=== PATIENT | female | born 1970 | race Caucasian/White ===

== ENCOUNTER 2022-08-26 07:21 | Day surgery (SDC) | payer MEDICAID ==
[~2022-08-26] VITALS: Ht 152.4 cm; Wt 68.0 kg
[~2022-08-26 07:21] MED LIST: PRENATAL VITS
[2022-08-26] MEDS ORDERED: LIDOCAINE 2% 100 MG/5 ML UJET TP ONE (08:13)
[2022-08-26] MEDS ORDERED: fentaNYL citrate 0.05 MG/ML VIAL ONE (08:13)
[2022-08-26] MEDS ORDERED: fentaNYL citrate 0.05 MG/ML VIAL IVP ONE (13:40)
== END 2022-08-26 10:14 | disposition home or self-care (01) ==
LOC: MDS 07:21 → MMU 07:21 → MDS 10:14
PROVIDERS: ATTEND Internal Medicine Gastroenterology
DX: Z12.11 Encounter for screening for malignant neoplasm of colon (principal); K62.1 Rectal polyp; E78.5 Hyperlipidemia, unspecified; Z88.0 Allergy status to penicillin; Z79.899 Other long term (current) drug therapy
CPT/HCPCS: 45385; J3010